=== PATIENT | female | born 1965 | race Two or more races ===

== ENCOUNTER 2021-01-25 07:50 | Emergency (ER) | payer MEDICAID, OTHER ==
[~2021-01-25] VITALS: Ht 160 cm; Wt 86.2 kg
[2021-01-25] MEDS ORDERED: cloNIDine HCL 0.1 MG TAB PO ONE (08:30)
[2021-01-25 08:58] LABS: Basophils # (auto) 0.1 10 ^3/uL (0-0.2); Basophils % (auto) 0.5 % (0.0-2.0); Eosinophils # (auto) 0 10 ^3/uL (0-0.8); Eosinophils % (auto) 0.2 % (0.0-7.0); Hematocrit 40.6 % (36.0-46.0); Hemoglobin 13.8 g/dL (12.2-16.2); Lymphocytes # (auto) 1.9 10 ^3/uL (0.4-5.4); Lymphocytes % (auto) 17.7 % (10.0-50.0); Mean Corpuscular Hemoglobin 31.3 pg (28.0-32.0); Mean Corpuscular Hgb Conc. 33.9 g/dL (32.0-36.0); Mean Corpuscular Volume 92.1 fL (80.0-100.0); Monocytes # (auto) 0.4 10 ^3/uL (0-1.3); Monocytes % (auto) 4.2 % (0.0-12.0); Neutrophils # (auto) 8.1 10 ^3/uL (1.6-8.6); Neutrophils % (auto) 77.4 % (37.0-80.0); Nucleated Red Blood Cells % 0.1 %; Platelet Count (auto) 411 10^3/uL (140-450); Red Blood Cells 4.41 10^6/uL (4.0-5.20); Red Cell Distribution Width 14.4 % (11.8-14.3); White Blood Cell 10.5 10^3/uL (4.4-10.8)
[2021-01-25] MEDS ORDERED: diphenhdrAMINE HCL 50 MG/1 ML VL IV ONE (09:00)
[2021-01-25] MEDS ORDERED: methylPREDNISolone SOD SUCC 125 MG/2 ML VL IV ONE (09:00)
[2021-01-25 09:13] LABS: Alanine Aminotransferase 33 U/L (13-56); Albumin 3.7 g/dL (3.4-5.0); Anion Gap 9 (5-15); Aspartate Aminotransferase 20 U/L (15-37); BUN/Creatinine Ratio 22.7; Blood Urea Nitrogen 17 mg/dL (7-18); Calcium 8.8 mg/dL (8.5-10.1); Carbon Dioxide 25 mmol/L (21-32); Chloride 105 mmol/L (98-107); GFR African American 103 mL/min; GFR Non-African American 85 mL/min; Glucose 159 mg/dL (74-106); Magnesium 1.9 mg/dL (1.6-2.6); Potassium 3.2 mmol/L (3.5-5.1); Sodium 139 mmol/L (136-145)
[2021-01-25 09:18] LABS: Alkaline Phosphatase 86 U/L (45-117); Bilirubin, Total 0.6 mg/dL (0.2-1.0); Total Protein 8.1 g/dL (6.4-8.2)
[2021-01-25 12:07] VITALS: BP 106/67
== END 2021-01-25 12:08 | disposition home or self-care (01) ==
LOC: ER 07:50
DX: I16.0 Hypertensive urgency (principal); T78.40XA Allergy, unspecified, initial encounter; Z88.0 Allergy status to penicillin; Z88.8 Allergy status to other drugs, medicaments and biological substances; Y92.89 Other specified places as the place of occurrence of the external cause
CPT/HCPCS: 36415; 71046; 80053; 83735; 84484; 85025; 93005; 96374; 96375; 99285; J1200; J2930

== ENCOUNTER 2021-01-29 10:27 | Emergency (ER) | payer MEDICAID ==
[~2021-01-29] VITALS: Ht 160 cm; Wt 86.2 kg
[2021-01-29 10:35] VITALS: BP 150/77
[2021-01-29 11:23] LABS: Basophils # (auto) 0.1 10 ^3/uL (0-0.2); Basophils % (auto) 0.6 % (0.0-2.0); Eosinophils # (auto) 0 10 ^3/uL (0-0.8); Hemoglobin 13.6 g/dL (12.2-16.2); Lymphocytes # (auto) 3.2 10 ^3/uL (0.4-5.4); Mean Corpuscular Hemoglobin 31.6 pg (28.0-32.0); Mean Corpuscular Hgb Conc. 34.1 g/dL (32.0-36.0); Mean Corpuscular Volume 92.6 fL (80.0-100.0); Monocytes # (auto) 0.6 10 ^3/uL (0-1.3); Neutrophils # (auto) 11.4 10 ^3/uL (1.6-8.6); Neutrophils % (auto) 74.4 % (37.0-80.0); Platelet Count (auto) 443 10^3/uL (140-450); Red Blood Cells 4.32 10^6/uL (4.0-5.20); Red Cell Distribution Width 14.4 % (11.8-14.3); White Blood Cell 15.3 10^3/uL (4.4-10.8)
[2021-01-29 11:38] LABS: Albumin 3.9 g/dL (3.4-5.0); Calcium 8.9 mg/dL (8.5-10.1); Potassium 3.9 mmol/L (3.5-5.1)
[2021-01-29 11:42] LABS: BUN/Creatinine Ratio 25.4; Bilirubin, Total 0.4 mg/dL (0.2-1.0); Total Protein 7.9 g/dL (6.4-8.2)
== END 2021-01-29 14:55 | disposition home or self-care (01) ==
LOC: ER 10:27
DX: I16.0 Hypertensive urgency (principal); I10 Essential (primary) hypertension; E11.9 Type 2 diabetes mellitus without complications; Z90.710 Acquired absence of both cervix and uterus; Z88.0 Allergy status to penicillin; Z88.8 Allergy status to other drugs, medicaments and biological substances
CPT/HCPCS: 36415; 80053; 84484; 85025; 93005

== ENCOUNTER 2023-05-13 17:28 | Inpatient (IN) | payer MEDICAID ==
[~2023-05-13] VITALS: Ht 157.5 cm; Wt 88.1 kg
[2023-05-13 17:58] LABS: Basophils # (auto) 0.1 10 ^3/uL (0-0.2); Basophils % (auto) 0.7 % (0.0-2.0); Eosinophils # (auto) 0.1 10 ^3/uL (0-0.8); Eosinophils % (auto) 1.2 % (0.0-7.0); Hematocrit 37.6 % (36.0-46.0); Hemoglobin 12.6 g/dL (12.2-16.2); Lymphocytes # (auto) 2.7 10 ^3/uL (0.4-5.4); Mean Corpuscular Hemoglobin 30.9 pg (28.0-32.0); Mean Corpuscular Hgb Conc. 33.5 g/dL (32.0-36.0); Mean Corpuscular Volume 92.1 fL (80.0-100.0); Monocytes # (auto) 0.6 10 ^3/uL (0-1.3); Monocytes % (auto) 5.3 % (0.0-12.0); Neutrophils # (auto) 7.3 10 ^3/uL (1.6-8.6); Neutrophils % (auto) 67.8 % (37.0-80.0); Nucleated Red Blood Cells % 0.1 %; Red Blood Cells 4.08 10^6/uL (4.0-5.20); Red Cell Distribution Width 14.7 % (11.8-14.3); White Blood Cell 10.8 10^3/uL (4.4-10.8)
[2023-05-13 18:14] LABS: INR 1.04 (0.9-1.15); Partial Thromboplastin Time 28.8 SEC (24.5-34.5); Prothrombin Time 10.9 sec (9.3-11.8)
[2023-05-13 18:18] LABS: Alanine Aminotransferase 23 U/L (7-40); Albumin 4.7 g/dL (3.2-4.8); Alkaline Phosphatase 201 U/L (46-116); Anion Gap 10 (5-15); Aspartate Aminotransferase 16 U/L (13-40); BUN/Creatinine Ratio 22.4 (10.0-20.0); Blood Urea Nitrogen 15 mg/dL (9-23); Carbon Dioxide 22 mmol/L (20-30); Chloride 105 mmol/L (98-107); Glucose 125 mg/dL (74-106); Magnesium 1.9 mg/dL (1.6-2.6); Potassium 4.1 mmol/L (3.5-5.1); Sodium 137 mmol/L (136-145)
[2023-05-13 18:19] LABS: Bilirubin, Total 0.3 mg/dL (0.2-1.0); Total Protein 7.7 g/dL (5.7-8.2)
[2023-05-13] MEDS ORDERED: NITROGLYCERIN 0.4 MG SL TAB SL ONE (19:15)
[2023-05-13] MEDS ORDERED: ASPirin 325 MG TAB PO ONE (19:15)
[2023-05-13] MEDS ORDERED: NITROGLYCERIN 0.4 MG SL TAB SL PRN (21:45)
[2023-05-13] MEDS ORDERED: ACETAMINOPHEN 325 MG TAB PO PRN (21:45)
[2023-05-13] MEDS ORDERED: ONDANSETRON HCL 4 MG/2 ML VIAL IV PRN (21:45)
[2023-05-13] MEDS ORDERED: TEMAZEPAM 15 MG CAP PO PRN (21:45)
[2023-05-13] MEDS ORDERED: MORPHINE SULFATE INJ 2 MG/ml SYRG IV PRN (21:45)
[2023-05-13] MEDS: ASCORBIC ACID 500 MG TAB PO SCH (23:44)
[2023-05-14] VITALS (7 sets, daily range): BP systolic 121–151; BP diastolic 67–91; PULSE 77–96; RESP 16–20; TEMP 97.6–98.4; O2SAT 94–98
[2023-05-14] MEDS ORDERED: HYDR-4072 PO (00:40)
[2023-05-14] MEDS ORDERED: AMLO1TAB21 PO (00:40)
[2023-05-14] MEDS ORDERED: LISI20TA56 PO (00:40)
[2023-05-14] MEDS ORDERED: TRAM50TA2 PO (00:40)
[2023-05-14] MEDS: HYDROcodone-ACET 5/325MG TAB PO PRN ×3 (01:11→22:00)
[2023-05-14 06:50] LABS: Basophils # (auto) 0.1 10 ^3/uL (0-0.2); Basophils % (auto) 0.6 % (0.0-2.0); Eosinophils # (auto) 0.1 10 ^3/uL (0-0.8); Hemoglobin 11.6 g/dL (12.2-16.2); Mean Corpuscular Volume 92.8 fL (80.0-100.0); Monocytes # (auto) 0.7 10 ^3/uL (0-1.3)
[2023-05-14 06:52] LABS: Eosinophils % (auto) 0.9 % (0.0-7.0); Hematocrit 34.6 % (36.0-46.0); Lymphocytes # (auto) 3.3 10 ^3/uL (0.4-5.4); Lymphocytes % (auto) 31.1 % (10.0-50.0); Mean Corpuscular Hemoglobin 31.2 pg (28.0-32.0); Mean Corpuscular Hgb Conc. 33.7 g/dL (32.0-36.0); Monocytes % (auto) 6.9 % (0.0-12.0); Neutrophils # (auto) 6.5 10 ^3/uL (1.6-8.6); Neutrophils % (auto) 60.5 % (37.0-80.0); Red Blood Cells 3.73 10^6/uL (4.0-5.20); Red Cell Distribution Width 14.4 % (11.8-14.3); White Blood Cell 10.7 10^3/uL (4.4-10.8)
[2023-05-14 07:09] LABS: Alanine Aminotransferase 17 U/L (7-40); Albumin 4.3 g/dL (3.2-4.8); Alkaline Phosphatase 151 U/L (46-116); Anion Gap 9 (5-15); Aspartate Aminotransferase 18 U/L (13-40); BUN/Creatinine Ratio 15.5 (10.0-20.0); Bilirubin, Total 0.5 mg/dL (0.2-1.0); Blood Urea Nitrogen 9 mg/dL (9-23); Calcium 9.3 mg/dL (8.5-10.1); Carbon Dioxide 22 mmol/L (20-30); Chloride 105 mmol/L (98-107); Glucose 131 mg/dL (74-106); Potassium 3.9 mmol/L (3.5-5.1); Sodium 136 mmol/L (136-145); Total Protein 7.1 g/dL (5.7-8.2)
[2023-05-14] MEDS ORDERED: ASPirin 325 MG TAB PO ONE (08:00)
[2023-05-14] MEDS ORDERED: IOHEXOL 350 MG/ML 100ML IJ ONE (08:40)
[2023-05-14] MEDS: MULTIPLE VITAMIN TAB PO SCH (11:44)
[2023-05-14] MEDS: ENOXAPARIN SOD 100 MG/1 ML SYRINGE SC SCH ×2 (11:44→22:03)
[2023-05-14] MEDS: ASCORBIC ACID 500 MG TAB PO SCH ×2 (11:44→21:52)
[2023-05-14] MEDS: ZINC SULFATE 220mg CAP or TAB PO SCH (11:44)
[2023-05-14] MEDS: MORPHINE SULFATE INJ 2 MG/ml SYRG IV PRN ×2 (11:45→17:00)
[2023-05-14] MEDS: DOCUSATE SOD 100 MG CAP PO PRN (22:00)
[2023-05-15] MEDS: MORPHINE SULFATE INJ 2 MG/ml SYRG IV PRN ×4 (00:22→23:27)
[2023-05-15] MEDS: HYDROcodone-ACET 5/325MG TAB PO PRN ×3 (00:26→15:30)
[2023-05-15 05:00] VITALS: BP 160/98; PULSE 87; RESP 20; TEMP 98.1; O2SAT 96
[2023-05-15] MEDS: LISINOPRIL 20 MG TAB PO SCH (05:22)
[2023-05-15 05:25] LABS: Alanine Aminotransferase 22 U/L (7-40); Albumin 4.5 g/dL (3.2-4.8); Alkaline Phosphatase 163 U/L (46-116); Anion Gap 10 (5-15); Aspartate Aminotransferase 16 U/L (13-40); Bilirubin, Total 0.5 mg/dL (0.2-1.0); Blood Urea Nitrogen 14 mg/dL (9-23); Calcium 9.8 mg/dL (8.5-10.1); Carbon Dioxide 24 mmol/L (20-30); Chloride 105 mmol/L (98-107); Cholesterol 223 mg/dL (< 200); Glucose 117 mg/dL (74-106); HDL Cholesterol 39 mg/dL (40-59); LDL Cholesterol 161 mg/dL (< 100); Potassium 3.9 mmol/L (3.5-5.1); Sodium 139 mmol/L (136-145); Total Protein 7.2 g/dL (5.7-8.2); Triglycerides 183 mg/dL (< 150)
[2023-05-15 08:00] VITALS: BP 115/68; PULSE 78; PULSE 79; RESP 16; TEMP 98.3; O2SAT 96
[2023-05-15] MEDS ORDERED: ADENOSINE 74 MG in GIVE UN-DILUTED 0 ML IV ONE (08:30)
[2023-05-15] MEDS: ENOXAPARIN SOD 100 MG/1 ML SYRINGE SC SCH ×2 (09:18→21:33)
[2023-05-15] MEDS: MULTIPLE VITAMIN TAB PO SCH (09:18)
[2023-05-15] MEDS: ASCORBIC ACID 500 MG TAB PO SCH ×2 (09:19→21:32)
[2023-05-15] MEDS: ZINC SULFATE 220mg CAP or TAB PO SCH (09:19)
[2023-05-15] MEDS: amLODIPine BESYLATE 5 MG TAB PO SCH (09:19)
[2023-05-15] MEDS: ASPirin 81 mg TAB PO SCH (09:19)
[2023-05-15] MEDS: PANTOPRAZOLE 40 MG TAB PO SCH (09:22)
[2023-05-15 12:00] VITALS: BP 98/62; PULSE 84; RESP 16; TEMP 98.2; O2SAT 96
[2023-05-15 16:00] VITALS: BP 133/86; PULSE 90; RESP 16; TEMP 98.8; O2SAT 98
[2023-05-15] MEDS: DOCUSATE SOD 100 MG CAP PO PRN (16:34)
[2023-05-15 20:00] VITALS: PULSE 80; RESP 18
[2023-05-15] MEDS: ATORVASTATIN 20 MG TAB PO SCH (21:33)
[2023-05-15 22:00] VITALS: BP 132/79; PULSE 87; RESP 18; TEMP 97.8; O2SAT 94
[2023-05-15] MEDS ORDERED: CYCLOBENZAPRINE HCL 10 MG TAB PO PRN (23:45)
[2023-05-16] VITALS (7 sets, daily range): BP systolic 113–126; BP diastolic 68–79; PULSE 68–86; RESP 16–20; TEMP 36.6; O2SAT 95–99
[2023-05-16] MEDS: HYDROcodone-ACET 5/325MG TAB PO PRN ×3 (06:03→21:23)
[2023-05-16] MEDS: LISINOPRIL 20 MG TAB PO SCH (06:04)
[2023-05-16] MEDS: ASPirin 81 mg TAB PO SCH (08:53)
[2023-05-16] MEDS: MULTIPLE VITAMIN TAB PO SCH (08:54)
[2023-05-16] MEDS: ZINC SULFATE 220mg CAP or TAB PO SCH (08:54)
[2023-05-16] MEDS: PANTOPRAZOLE 40 MG TAB PO SCH (08:54)
[2023-05-16] MEDS: ASCORBIC ACID 500 MG TAB PO SCH ×2 (08:54→21:10)
[2023-05-16] MEDS: amLODIPine BESYLATE 5 MG TAB PO SCH (08:59)
[2023-05-16] MEDS: ENOXAPARIN SOD 100 MG/1 ML SYRINGE SC SCH ×2 (09:01→21:10)
[2023-05-16] MEDS: MORPHINE SULFATE INJ 2 MG/ml SYRG IV PRN (10:40)
[2023-05-16] MEDS ORDERED: ASPI-325 PO (14:17)
[2023-05-16] MEDS ORDERED: CYCL-611 PO (14:17)
[2023-05-16] MEDS: ATORVASTATIN 20 MG TAB PO SCH (21:10)
[2023-05-17] MEDS: MORPHINE SULFATE INJ 2 MG/ml SYRG IV PRN ×2 (01:20→15:34)
[2023-05-17 05:28] VITALS: BP 96/57; PULSE 74; RESP 20; TEMP 98.6; O2SAT 99
[2023-05-17] MEDS: LISINOPRIL 20 MG TAB PO SCH (05:30)
[2023-05-17 08:00] VITALS: BP 149/84; PULSE 100; PULSE 108; RESP 20; TEMP 97.6; O2SAT 95
[2023-05-17 09:00] VITALS: BP 149/84; PULSE 108; RESP 20; TEMP 97.6; O2SAT 95
[2023-05-17] MEDS: HYDROcodone-ACET 5/325MG TAB PO PRN (11:01)
[2023-05-17] MEDS: ENOXAPARIN SOD 100 MG/1 ML SYRINGE SC SCH (11:01)
[2023-05-17] MEDS: DOCUSATE SOD 100 MG CAP PO PRN (11:01)
[2023-05-17] MEDS: MULTIPLE VITAMIN TAB PO SCH (11:02)
[2023-05-17] MEDS: PANTOPRAZOLE 40 MG TAB PO SCH (11:03)
[2023-05-17] MEDS: ASCORBIC ACID 500 MG TAB PO SCH (11:03)
[2023-05-17] MEDS: amLODIPine BESYLATE 5 MG TAB PO SCH (11:03)
[2023-05-17] MEDS: ASPirin 81 mg TAB PO SCH (11:04)
[2023-05-17] MEDS: ZINC SULFATE 220mg CAP or TAB PO SCH (11:04)
[2023-05-17 13:00] VITALS: BP 121/91; PULSE 90; RESP 20; TEMP 97.6; O2SAT 95
[2023-05-17 13:27] VITALS: BP 149/84; PULSE 108; RESP 20; TEMP 97.6; O2SAT 95
[2023-05-17 15:34] VITALS: BP 121/91; PULSE 90; RESP 20
== END 2023-05-17 16:22 | disposition home or self-care (01) | DRG 203 ==
LOC: ER 17:28 → TELE 21:36 → TELE-WESTW 23:53
PROVIDERS: ADMIT Internal Medicine; ATTEND Internal Medicine
DX: R07.89 Other chest pain (principal); I11.9 Hypertensive heart disease without heart failure; E11.9 Type 2 diabetes mellitus without complications; I10 Essential (primary) hypertension; E66.9 Obesity, unspecified; R79.89 Other specified abnormal findings of blood chemistry; M79.606 Pain in leg, unspecified; R06.00 Dyspnea, unspecified; E78.5 Hyperlipidemia, unspecified; Z88.0 Allergy status to penicillin; Z68.35 Body mass index [BMI] 35.0-35.9, adult; Z87.891 Personal history of nicotine dependence; Z79.82 Long term (current) use of aspirin; Z88.6 Allergy status to analgesic agent; Z90.710 Acquired absence of both cervix and uterus; Z71.3 Dietary counseling and surveillance
CPT/HCPCS: 36415; 71045; 71275; 78452; 80053; 80061; 83735; 83880; 84484; 85025; 85379; 85610; 85730; 87081; 93005; 93017; 93306; 93970; G0378; J0153

== ENCOUNTER 2024-02-24 09:03 | Emergency (ER) | payer MEDICAID ==
[~2024-02-24] VITALS: Ht 160 cm; Wt 91.7 kg
[~2024-02-24 09:03] MED LIST: AMLO1TAB21 PO; ASPI-325 PO; CYCL-611 PO; HYDR-4072 PO; LISI20TA56 PO; TRAM50TA2 PO
[2024-02-24] MEDS ORDERED: PRED20TA2 PO (13:34)
[2024-02-24] MEDS ORDERED: EPIN0.1I11 IJ (13:34)
[2024-02-24] MEDS: SODIUM CHLORIDE 0.9% 1,000 ML IV ONE (14:45)
[2024-02-24] MEDS: diphenhdrAMINE HCL 50 MG/1 ML VL IV ONE (14:47)
[2024-02-24] MEDS: DexAMETHasone SOD PHOS 10MG/1ML VIAL INJ IV ONE (14:47)
[2024-02-24] MEDS: FAMOTIDINE (10MG/ML) 2ML VL IV ONE (14:48)
[2024-02-24 15:26] VITALS: BP 122/71; PULSE 70; RESP 16; TEMP 97.9; O2SAT 99
== END 2024-02-24 20:16 | disposition home or self-care (01) ==
LOC: ER 09:03
DX: T78.40XA Allergy, unspecified, initial encounter (principal); L50.9 Urticaria, unspecified; E11.9 Type 2 diabetes mellitus without complications; I10 Essential (primary) hypertension; Z90.710 Acquired absence of both cervix and uterus; Z87.891 Personal history of nicotine dependence; Z90.89 Acquired absence of other organs; Z88.6 Allergy status to analgesic agent; Z88.2 Allergy status to sulfonamides; Z91.013 Allergy to seafood; X58.XXXA Exposure to other specified factors, initial encounter
CPT/HCPCS: 96361; 96374; 96375; 99284; J1100; J1200; J3490; J7030

== ENCOUNTER → 2024-03-22 | Outpatient (CLI) | payer MEDICAID ==
[~2024-03-22] MED LIST changes: +EPIN0.1I11 IJ; +PRED20TA2 PO
[2024-03-22 10:45] LABS: Basophils # (auto) 0.1 10 ^3/uL (0-0.2); Hemoglobin 14.1 g/dL (12.2-16.2); Monocytes # (auto) 0.4 10 ^3/uL (0-1.3)
[2024-03-22 10:52] LABS: Basophils % (auto) 0.7 % (0.0-2.0); Eosinophils # (auto) 0 10 ^3/uL (0-0.8); Eosinophils % (auto) 0.4 % (0.0-7.0); Hematocrit 41.4 % (36.0-46.0); Lymphocytes % (auto) 19.2 % (10.0-50.0); Mean Corpuscular Hemoglobin 32.4 pg (28.0-32.0); Mean Corpuscular Hgb Conc. 34.2 g/dL (32.0-36.0); Mean Corpuscular Volume 94.8 fL (80.0-100.0); Monocytes % (auto) 3.6 % (0.0-12.0); Neutrophils % (auto) 76.1 % (37.0-80.0); Red Blood Cells 4.37 10^6/uL (4.0-5.20); Red Cell Distribution Width 14.3 % (11.8-14.3); White Blood Cell 10.5 10^3/uL (4.4-10.8)
[2024-03-22 11:34] LABS: Alanine Aminotransferase 22 U/L (7-40); Albumin 4.9 g/dL (3.2-4.8); Alkaline Phosphatase 114 U/L (46-116); Anion Gap 7 (5-15); Aspartate Aminotransferase 18 U/L (13-40); BUN/Creatinine Ratio 11.9 (10.0-20.0); Bilirubin, Total 0.4 mg/dL (0.2-1.0); Blood Urea Nitrogen 10 mg/dL (9-23); Carbon Dioxide 25 mmol/L (20-30); Chloride 108 mmol/L (98-107); Glucose 165 mg/dL (74-106); Sodium 140 mmol/L (136-145); Total Protein 7.7 g/dL (5.7-8.2)
[2024-03-23 12:47] LABS: Mumps IgG Antibody <9.0 AU/mL (Immune >10.9); RPR Non Reactive (Non Reactive); Rubeola IgG Antibody >300.0 AU/mL (Immune >16.4); Varicella Zoster IgG Antibody 1787 index (Immune >165)
[2024-03-23 13:07] LABS: Chlamydia Trachomatis, NAA Negative (Negative); Neisseria gonorrhoeae, NAA Negative (Negative)
[2024-03-24 09:05] LABS: Hepatitis B Surface Antigen Negative (Negative)
[2024-03-24 09:27] LABS: Hepatitis B Core IgM Negative
[2024-03-24 11:51] LABS: Hepatitis A Ab IgM Negative; Hepatitis C Antibody Negative (Negative)
== END | disposition home or self-care (01) ==
LOC: LAB 09:49
PROVIDERS: ATTEND Internal Medicine
DX: Z11.3 Encounter for screening for infections with a predominantly sexual mode of transmission (principal); Z11.59 Encounter for screening for other viral diseases; E11.69 Type 2 diabetes mellitus with other specified complication; E11.22 Type 2 diabetes mellitus with diabetic chronic kidney disease; N18.2 Chronic kidney disease, stage 2 (mild); D72.829 Elevated white blood cell count, unspecified; E87.5 Hyperkalemia
CPT/HCPCS: 36415; 80053; 80074; 85025; 86592; 86703; 86735; 86762; 86765; 86787

== ENCOUNTER → 2024-06-01 | Outpatient (CLI) | payer MEDICAID ==
[2024-06-01 11:02] LABS: Alanine Aminotransferase 20 U/L (7-40); Alkaline Phosphatase 94 U/L (46-116); Anion Gap 5 (5-15); BUN/Creatinine Ratio 12.3 (10.0-20.0); Blood Urea Nitrogen 10 mg/dL (9-23); Calcium 9.9 mg/dL (8.7-10.4); Carbon Dioxide 26 mmol/L (20-31); Chloride 108 mmol/L (98-107); Glucose 123 mg/dL (74-106); LDL Cholesterol 179 mg/dL (< 100); Potassium 4.3 mmol/L (3.5-5.1); Sodium 139 mmol/L (136-145); Triglycerides 165 mg/dL (< 150)
[2024-06-01 11:03] LABS: Albumin 4.6 g/dL (3.2-4.8); Aspartate Aminotransferase 15 U/L (13-40); Bilirubin, Total 0.3 mg/dL (0.2-1.0); Cholesterol 235 mg/dL (< 200); HDL Cholesterol 43 mg/dL (40-59); Total Protein 7.6 g/dL (5.7-8.2)
[2024-06-01 11:07] LABS: Creatinine, Urine 322.95 mg/dL (30.0-125.0)
== END | disposition home or self-care (01) ==
LOC: LAB 09:50
PROVIDERS: ATTEND Internal Medicine
DX: I12.9 Hypertensive chronic kidney disease with stage 1 through stage 4 chronic kidney disease, or unspecified chronic kidney disease (principal); E11.22 Type 2 diabetes mellitus with diabetic chronic kidney disease; N18.2 Chronic kidney disease, stage 2 (mild); E11.69 Type 2 diabetes mellitus with other specified complication; E78.2 Mixed hyperlipidemia
CPT/HCPCS: 36415; 80053; 80061; 82043; 82570; 83036

== ENCOUNTER → 2024-10-19 | Outpatient (CLI) | payer MEDICAID ==
[2024-10-19 11:43] LABS: Basophils # (auto) 0.1 10 ^3/uL (0-0.2); Basophils % (auto) 0.6 % (0.0-2.0); Eosinophils # (auto) 0 10 ^3/uL (0-0.8); Eosinophils % (auto) 0.4 % (0.0-7.0); Hematocrit 40.4 % (36.0-46.0); Hemoglobin 13.7 g/dL (12.2-16.2); Lymphocytes # (auto) 2.7 10 ^3/uL (0.4-5.4); Lymphocytes % (auto) 29.7 % (10.0-50.0); Mean Corpuscular Hemoglobin 31.9 pg (28.0-32.0); Mean Corpuscular Hgb Conc. 33.8 g/dL (32.0-36.0); Mean Corpuscular Volume 94.3 fL (80.0-100.0); Monocytes # (auto) 0.3 10 ^3/uL (0-1.3); Monocytes % (auto) 3.8 % (0.0-12.0); Neutrophils % (auto) 65.5 % (37.0-80.0); Platelet Count (auto) 428 10^3/uL (140-450); Red Blood Cells 4.28 10^6/uL (4.0-5.20); Red Cell Distribution Width 14.7 % (11.8-14.3); White Blood Cell 9.1 10^3/uL (4.4-10.8)
[2024-10-19 12:28] LABS: Alanine Aminotransferase 14 U/L (7-40); Alkaline Phosphatase 91 U/L (46-116); Anion Gap 6 (5-15); BUN/Creatinine Ratio 19.2 (10.0-20.0); Bilirubin, Total 0.4 mg/dL (0.2-1.0); Blood Urea Nitrogen 14 mg/dL (9-23); Carbon Dioxide 29 mmol/L (20-31); Chloride 105 mmol/L (98-107); Glucose 95 mg/dL (74-106); Potassium 4.9 mmol/L (3.5-5.1); Sodium 140 mmol/L (136-145); Total Protein 7.6 g/dL (5.7-8.2)
[2024-10-19 12:36] LABS: Urine Bacteria FEW /hpf (None Seen); Urine Blood Negative /uL (Negative); Urine Clarity Turbid (Clear); Urine Color Yellow (Yellow); Urine Hyaline Cast FEW /lpf (0 - 2); Urine Mucus FEW (None Seen); Urine Protein, UAD Negative (Negative); Urine Specific Gravity 1.024 (1.001-1.035); Urine Squamous Epithelial Cell FEW /hpf (<5); Urine Urobilinogen Normal (Negative); Urine WBC 3 /HPF (0-5); Urine pH 5.5 (5.0-9.0)
[2024-10-19 12:41] LABS: Albumin 4.8 g/dL (3.2-4.8); Aspartate Aminotransferase 12 U/L (13-40); Calcium 10.5 mg/dL (8.7-10.4)
[2024-10-19 13:00] LABS: Triglycerides 138 mg/dL (< 150)
[2024-10-19 13:02] LABS: HDL Cholesterol 43 mg/dL (40-59)
[2024-10-19 13:09] LABS: Cholesterol 244 mg/dL (< 200); LDL Cholesterol 182 mg/dL (< 100)
== END | disposition home or self-care (01) ==
LOC: LAB 11:24
PROVIDERS: ATTEND Internal Medicine
DX: I12.9 Hypertensive chronic kidney disease with stage 1 through stage 4 chronic kidney disease, or unspecified chronic kidney disease (principal); E11.22 Type 2 diabetes mellitus with diabetic chronic kidney disease; N18.2 Chronic kidney disease, stage 2 (mild); E11.69 Type 2 diabetes mellitus with other specified complication; E78.2 Mixed hyperlipidemia; E87.5 Hyperkalemia; Z00.01 Encounter for general adult medical examination with abnormal findings
CPT/HCPCS: 36415; 80053; 80061; 81001; 82043; 83036; 84439; 84443; 85025

== ENCOUNTER → 2024-11-02 | Outpatient (CLI) | payer MEDICAID ==
[2024-11-02 10:44] LABS: Alanine Aminotransferase 20 U/L (7-40); Albumin 4.2 g/dL (3.2-4.8); Alkaline Phosphatase 90 U/L (46-116); Anion Gap 8 (5-15); Aspartate Aminotransferase 20 U/L (13-40); BUN/Creatinine Ratio 8.5 (10.0-20.0); Calcium 9.4 mg/dL (8.7-10.4); Carbon Dioxide 29 mmol/L (20-31); Chloride 105 mmol/L (98-107); Creatine Kinase IFCC 87 U/L (34-145); Glucose 94 mg/dL (74-106); Potassium 4.1 mmol/L (3.5-5.1); Sodium 142 mmol/L (136-145); Total Protein 7.1 g/dL (5.7-8.2)
[2024-11-02 10:45] LABS: Bilirubin, Total 0.4 mg/dL (0.2-1.0)
[2024-11-02 10:46] LABS: Blood Urea Nitrogen 5 mg/dL (9-23)
== END | disposition home or self-care (01) ==
LOC: LAB 09:05
PROVIDERS: ATTEND Internal Medicine
DX: I12.9 Hypertensive chronic kidney disease with stage 1 through stage 4 chronic kidney disease, or unspecified chronic kidney disease (principal); E11.22 Type 2 diabetes mellitus with diabetic chronic kidney disease; N18.2 Chronic kidney disease, stage 2 (mild); E11.69 Type 2 diabetes mellitus with other specified complication; E78.2 Mixed hyperlipidemia
CPT/HCPCS: 36415; 80053; 82550

== ENCOUNTER 2025-01-23 10:11 | Outpatient (CLI) | payer MEDICAID ==
[2025-01-23 11:00] LABS: Alanine Aminotransferase 19 U/L (7-40); Albumin 4.7 g/dL (3.2-4.8); Alkaline Phosphatase 91 U/L (46-116); Anion Gap 8 (5-15); Aspartate Aminotransferase 16 U/L (<34); BUN/Creatinine Ratio 18.1 (10.0-20.0); Blood Urea Nitrogen 13 mg/dL (9-23); Calcium 10.1 mg/dL (8.7-10.4); Carbon Dioxide 27 mmol/L (20-31); Chloride 107 mmol/L (98-107); Glucose 92 mg/dL (74-106); LDL Cholesterol 73 mg/dL (< 100); Sodium 142 mmol/L (136-145); Total Protein 7.3 g/dL (5.7-8.2); Triglycerides 96 mg/dL (< 150)
[2025-01-23 11:01] LABS: Bilirubin, Total 0.3 mg/dL (0.2-1.0); Cholesterol 136 mg/dL (< 200); HDL Cholesterol 49 mg/dL (40-59)
== END 2025-01-23 17:00 | disposition home or self-care (01) ==
LOC: LAB 10:11
PROVIDERS: ATTEND Internal Medicine
DX: E78.2 Mixed hyperlipidemia (principal); E11.69 Type 2 diabetes mellitus with other specified complication; E83.52 Hypercalcemia
CPT/HCPCS: 36415; 80053; 80061

== ENCOUNTER 2025-04-23 03:09 | Inpatient (IN) | payer MEDICAID ==
[~2025-04-23] VITALS: Ht 160 cm; Wt 79.5 kg
[2025-04-23] MEDS: ONDANSETRON HCL 4 MG/2 ML VIAL IV ONE (03:30)
--- NOTE | 2025-04-23 04:02 | ED.PDOC ---
History of Present Illness HPI Comments 59 y/o F presents with c/c nonradiating, epigastric abdominal pain, nausea, and vomiting. Patient endorses on sudden onset of symptoms after last eating an [id number], earlier, last night. No previous history of similar symptoms in the past alongside any endorsement of any pertinent medical, surgical, or family history. Denies any bloody or bilious vomitus, diarrhea, constipation, or further associated symptoms. Chief Complaint: Abdominal Pain Time Seen by MD: 03:30 Primary Care Provider: KASSI Allergies: Coded Allergies: Ibuprofen (Verified Allergy, Mild, 01/25/21) NSAIDs (Verified Allergy, Unknown, 02/24/24) Penicillins (Verified Allergy, Unknown, 01/25/21) Shellfish Allergy (Verified Allergy, Unknown, 02/24/24) Home Meds Active Scripts Epinephrine (Anaphylaxis) (Auvi-Q) 0.1 Mg/0.1 Ml Inj, 0.1 MG IJ O PRN for 1 Day, #1 INJ Prov:MEREDITH BORDEN MD 02/24/24 Prednisone (Prednisone) 20 Mg Tab, 40 MG PO DAILY for 5 Days, #10 MG Prov:MEREDITH BORDEN MD 02/24/24 Cyclobenzaprine HCl (Cyclobenzaprine Hydrochlo) 10 Mg Tab, 10 MG PO Q8HPRN PRN for 10 Days, #30 TAB Prov:SABINE ROBLEDO NP 05/16/23 Aspirin (Aspirin Low Dose) 81 Mg Tab, 81 MG PO DAILY for 30 Days, #30 TAB Prov:SABINE ROBLEDO NP 05/16/23 Reported Medications Tramadol Hcl (Tramadol Hcl) 50 Mg Tab, 1 TAB PO Q8HPRN PRN for PAIN SCALE 1 THRU 6 05/14/23 Hydrocodone-Acetaminophen (Hydrocodone/Acetaminophen 10-325 mg) 1 Tab Tab, 1 TAB PO Q6HPRN PRN for PAIN1-6 05/14/23 Amlodipine Besylate (Amlodipine Besylate) 2.5 Mg Tab, 2.5 MG PO DAILY, TAB 05/14/23 Lisinopril (Lisinopril) 20 Mg Tab, 20 MG PO QAM, TAB 05/14/23 Information Source: Patient Mode of Arrival: Ambulatory Past Medical History PAST MEDICAL HISTORY: DM, HTN Surgical History: , Hysterectomy, Tonsillectomy 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 Pertinent AUTOMATIC DRY STARCH OPERATOR History Family History Family History: Reviewed,noncontributory to illness Social History Smoker: Quit Greater Than 1 Year Alcohol: Denies ETOH Use Drugs: Denies Drug Use Lives In: Home All Other Systems: Reviewed and Negative (Comprehensive systems review obtained and negative except for what is stated in the HPI.) Physical Exam General Appearance: Moderate Distress, Obese HEENT: Normal ENT Inspection, Pharynx Normal, TMs Normal Neck: Full Range of Motion, Non-Tender, Normal, Normal Inspection Respiratory: Chest Non-Tender, Lungs Clear, No Accessory Muscle Use, No Respiratory Distress, Normal Breath Sounds Cardiovascular: No Edema, No JVD, No Murmur, No Gallop, Normal Peripheral Pulses, Regular Rate/Rhythm Breast Exam: Deferred Gastrointestinal: Epigastric (tenderness ), No Organomegaly, No Pulsatile Mass, Normal Bowel Sounds, RUQ (tenderness ), Soft, Tenderness (epigastric and RUQ regions ) Genitalia: Deferred Pelvic: Deferred Rectal: Deferred Extremities: No calf tenderness, Normal capillary refill, Normal inspection, Normal range of motion, Non-tender, No pedal edema Musculoskeletal : Apperance: Normal Neurologic: Alert, well logging captain II-XII nml as Tested, No Motor Deficits, Normal Affect, Normal Mood, No Sensory Deficits Cerebellar Function: Normal Reflexes: Normal Skin: Dry, Normal Color, Warm Peripheral Pulses: 3+ Radial (R), 3+ Radial (L) Lymphatic: No Adenopathy Was a procedure done? Was a procedure done?: No Differential Dx Considerations may include: gastritis, gastroenteritis, GERD, PUD, cholelithiasis, cholecystitis, among others X-Ray, Labs, Meds, VS Vital Signs Date Time Temp Pulse Resp B/P (MAP) Pulse Ox O2 Delivery O2 Flow Rate FiO2 04/23/25 03:13 97.9 97 22 160/85 97 97.9 Lab Test 04/23/25 04:00 Range/Units White Blood Count 15.2 H 4.4-10.8 10^3/uL Red Blood Count 4.00 4.0-5.20 10^6/uL Hemoglobin 12.9 12.2-16.2 g/dL Hematocrit 37.6 36.0-46.0 % Mean Corpuscular Volume 94.0 80.0-100.0 fL Mean Corpuscular Hemoglobin 32.4 H 28.0-32.0 pg Mean Corpuscular Hemoglobin Concent 34.4 32.0-36.0 g/dL Red Cell Distribution Width 14.5 H 11.8-14.3 % Platelet Count 424 140-450 10^3/uL Mean Platelet Volume 6.9 6.9-10.8 fL Neutrophils (%) (Auto) 90.0 H 37.0-80.0 % Lymphocytes (%) (Auto) 8.1 L 10.0-50.0 % Monocytes (%) (Auto) 1.8 0.0-12.0 % Eosinophils (%) (Auto) 0.0 0.0-7.0 % Basophils (%) (Auto) 0.1 0.0-2.0 % Neutrophils # (Auto) 13.7 H 1.6-8.6 10 ^3/uL Lymphocytes # (Auto) 1.2 0.4-5.4 10 ^3/uL Monocytes # (Auto) 0.3 0-1.3 10 ^3/uL Eosinophils # (Auto) 0 0-0.8 10 ^3/uL Basophils # (Auto) 0 0-0.2 10 ^3/uL Nucleated Red Blood Cells 0.0 % Sodium Level 139 136-145 mmol/L Potassium Level 3.9 3.5-5.1 mmol/L Chloride Level 105 98-107 mmol/L Carbon Dioxide Level 26 20-31 mmol/L Anion Gap 8 5-15 Blood Urea Nitrogen 14 9-23 mg/dL Creatinine 0.76 0.550-1.02 mg/dL Glomerular Filtration Rate Calc 90 >90 mL/min BUN/Creatinine Ratio 18.4 10.0-20.0 Serum Glucose 154 H 74-106 mg/dL Calcium Level 9.5 8.7-10.4 mg/dL Total Bilirubin 0.5 0.2-1.0 mg/dL Aspartate Amino Transferase (AST) 50 H 13-40 U/L Alanine Aminotransferase (ALT) 47 H 7-40 U/L Alkaline Phosphatase 99 46-116 U/L Total Protein 7.7 5.7-8.2 g/dL Albumin 4.7 3.2-4.8 g/dL Lipase 34 12-53 U/L Current Medications Medications (Trade) Dose Ordered Sig/[place] Route Start Time Stop Time Status Last Admin Ondansetron HCl (Zofran) 4 mg ONCE ONCE IV 04/23/25 03:30 04/23/25 03:32 DC 04/23/25 03:30 Sodium Chloride 1,000 ml @ 1,000 mls/hr Q1H ONCE IV 04/23/25 03:30 04/23/25 04:29 DC 04/23/25 05:30 Patient alert. Came in because of abdominal pain. Vitals stable. Answering questions. WBC elevated. Liver profile elevated. Blood sugar elevated. Establish intravenous access. Was given fluids. Was given Levaquin. Was given Flagyl. Ultrasound reviewed does not show any acute changes. Explained to the patient. Continue monitoring. Time of 1ST Reevaluation: 04:00 Reevaluation 1ST: Unchanged Patient Education/Counseling: Diagnosis, Treatment, Need For Follow Up Family Education/Counseling: No Family Present Comments Patient is still waiting for the gallbladder ultrasound. I will signed out to Additional Information Previous visits: N/A The following tests were ordered, and results were reviewed by me: US gallbladder, UA, Lipase, CMP, CBC Additional Information was gathered from interviewing the following independent historians: N/A I reviewed and agreed with the following test results read by other providers: US gallbladder I discussed treatment and results with medical personnel and: patient SEPSIS Sepsis Screen Date sepsis recognized/suspect: Apr 23, 2025 Time Sepsis recognized/suspect: 316 Recent Procedure: No On Antibiotic Therapy: No Respiratory Rate >20: No Heart Rate >90: No Temp<36 C (96.8 F) or >38.3 C: No SBP <90 or MAP <65 mmHG: No New Acute Mental Status Change: No Is the patient on CPAP, BIPAP,: No Physician Orders Urinalysis (04/23/25 03:30) Gallbladder (04/23/25 03:30) Ct Ab Pel Wo Con-No Oral Or Iv (04/23/25 07:55) Blood Culture (04/23/25 07:55) Lactic Acid W/ Reflex Order (04/23/25 07:55) Levofloxacin Levaquin (04/23/25 08:00) Metronidazole Ivpb Flagyl (04/23/25 08:00) Vital Signs Date Time Temp Pulse Resp B/P (MAP) Pulse Ox O2 Delivery O2 Flow Rate FiO2 04/23/25 03:13 97.9 97 22 160/85 97 97.9 Laboratory Tests Test 04/23/25 04:00 White Blood Count 15.2 10^3/uL (4.4-10.8) H Medications Medications Dose Ordered Sig/[place] Route Start Time Stop Time Status Last Admin Dose Admin Ondansetron HCl 4 mg ONCE ONCE IV 04/23/25 03:30 04/23/25 03:32 DC 04/23/25 03:30 Sodium Chloride 1,000 ml @ 1,000 mls/hr Q1H ONCE IV 04/23/25 03:30 04/23/25 04:29 DC 04/23/25 05:30 Departure 1 Departure Time of Disposition: 07:58 Impression: Primary Impression: Acute abdominal pain Additional Impressions: Sepsis, unspecified organism Qualified Codes: A41.9 - Sepsis, unspecified organism Uncontrolled diabetes mellitus Qualified Codes: E13.65 - Other specified diabetes mellitus with hyperglycemia Disposition: ADMITTED INPATIENT Admit to: Med Surg Condition: Guarded Critical Care Note Critical Care Time?: Yes (90 min-critical care time only) Stability Stability form required: No Heart Score Heart Score: Heart Score Response (Comments) Value History N/A 0 EKG N/A 0 Age N/A 0 Risk Factors N/A 0 Troponin N/A 0 Total 0 I personally scribed for VLAD SIMMONS MD ([email or web address]) on 04/23/25 at 04:02. Electronically submitted by Alejo Zavaleta ([email or web address]). VLAD SIMMONS MD Apr 23, 2025 04:02 ESSENCE CASILLAS MD Apr 23, 2025 07:59
[2025-04-23 04:13] LABS: Hematocrit 37.6 % (36.0-46.0); Hemoglobin 12.9 g/dL (12.2-16.2); Mean Corpuscular Hemoglobin 32.4 pg (28.0-32.0); Mean Corpuscular Volume 94.0 fL (80.0-100.0); Nucleated Red Blood Cells % 0.0 %
[2025-04-23 04:37] LABS: Albumin 4.7 g/dL (3.2-4.8); Alkaline Phosphatase 99 U/L (46-116); Anion Gap 8 (5-15); BUN/Creatinine Ratio 18.4 (10.0-20.0); Bilirubin, Total 0.5 mg/dL (0.2-1.0); Blood Urea Nitrogen 14 mg/dL (9-23); Calcium 9.5 mg/dL (8.7-10.4); Carbon Dioxide 26 mmol/L (20-31); Chloride 105 mmol/L (98-107); Lipase 34 U/L (12-53); Potassium 3.9 mmol/L (3.5-5.1); Sodium 139 mmol/L (136-145); Total Protein 7.7 g/dL (5.7-8.2)
[2025-04-23 04:51] LABS: Alanine Aminotransferase 47 U/L (7-40); Glucose 154 mg/dL (74-106)
[2025-04-23] MEDS: SODIUM CHLORIDE 0.9% 1,000 ML IV ONE (05:30)
--- NOTE | 2025-04-23 07:46 | DVH ---
INDICATION: ruq pain TECHNIQUE: Multiple real-time sonographic images were obtained of the right upper quadrant. COMPARISON: None FINDINGS: The liver demonstrates homogeneous echotexture without focal mass lesions. The liver measu res 17.8 cm. There is no intrahepatic or extrahepatic ductal dilatation. The common duct measures 0.6 cm. The gallbladder is without evidence of stone or sludge. The gallbladder wall measures 0.2 cm and is w ithin normal limits. The right kidney measures 10 cm. The right kidney is normal in contour, size, and shape. The echogeni city is normal. There is no hydronephrosis. The pancreas is not well visualized due to overlying bowel gas. IMPRESSION: No sonographic evidence of gallstones or acute cholecystitis. Hepatomegaly.
--- NOTE | 2025-04-23 08:47 | DVH ---
Exam: CT CT AB PEL WO CON-NO ORAL OR IV History: colitis Comparison Study: None Technique: Multidetector spiral CT of the abdomen was performed from lung bases to pubic symphysis. I maging was performed without IV contrast. Axial, coronal and sagittal multiplanar reformats were obta ined from the axial data set by the technologist. Radiation Dose : 1. Abdomen/Pelvis: CTDIvol 14.55 mGy, DLP 738.25 mGy*cm. Findings: Evaluation of solid organs is limited due to lack of intravenous contrast use. Lung Bases: No acute or significant lung base finding. Normal heart size. No pleural or pericardial effusion. Liver: Liver is enlarged measuring 17.8 cm, craniocaudal. Gallbladder and Biliary Tree: Unremarkable Spleen: Unremarkable Pancreas: The pancreas is grossly normal in appearance. Adrenal Glands: Unremarkable Kidneys: Kidneys are grossly normal without calculi or hydronephrosis. Bladder: Grossly unremarkable for degree of distention. Bowel: The stomach is grossly normal in appearance. Moderate diffuse colonic bowel wall thickening. Diverticulosis. The appendix is not visualized; however, no secondary findings of acute appendicitis identified. Ascites: Absent Lymphadenopathy: No mesenteric, retroperitoneal or periportal lymphadenopathy. Abdominal Wall and Mesentery: Unremarkable. Vasculature: The visualized abdominal aorta is normal in size and caliber. Evaluation of abdominal a nd pelvic vessels is limited due to lack of intravenous contrast. Pelvic Organs: Unremarkable Musculoskeletal: No aggressive focal bony lesions, acute fractures or dislocation. Degenerative shah es of the spine. Lumbosacral spinal fixation hardware. IMPRESSION: Moderate diffuse colonic bowel wall thickening compatible with colitis. Radiation optimization: All CT scans at this facility use at least one of these dose optimization david hniques: automated exposure control mA and/or kV adjustment per patient size (includes targeted exam s where dose is matched to clinical indication) or iterative reconstruction.
[2025-04-23 09:11] VITALS: PULSE 79; RESP 17; O2SAT 100
[2025-04-23] MEDS ORDERED: DEXTROSE (50%) 50ML SYRG IV PRN (09:15)
[2025-04-23] MEDS ORDERED: HYDROcodone-ACET 5/325MG TAB PO PRN (09:15)
[2025-04-23] MEDS ORDERED: ACETAMINOPHEN 500 MG TAB or CAP PO PRN (09:15)
--- NOTE | 2025-04-23 09:26 | DVHHP2 ---
History of Present Illness Reason for Visit: Abdominal pain History of Present Illness Patient has a 59-year-old female presenting to the emergency room with reports of diffuse abdominal pain with localized pain described as sharp in nature in her epigastric area, profuse nausea and vomiting, as well as chills. Onset of symptoms began yesterday afternoon. Patient continues to have abdominal pain at this time. White blood cell count was found to be elevated at 15.2. CT scan positive for acute colitis. Patient will be admitted for continued IV antibiotic therapy as well as IV hydration. Significant history of the patient includes diabetes mellitus, and hypertension. Cardiovascular: HTN Endocrine: Diabetes Past Surgical History: Family History: None Smoke: No ALCOHOL: none Drugs: None Review of Systems Constitutional: Yes: Malaise Eyes: No: Pain, Vision change, Conjunctivae inflammation, Eyelid inflammation, Other, Redness ENT: No: Ear pain, Ear discharge, Nose pain, Nose discharge, Nose congestion, Mouth pain, Mouth swelling, Throat pain, Throat swelling, Other Respiratory: No: Cough, Dry, Shortness of breath, SOB with excertion, Wheezing, Hemoptysis, Pleuritic Pain, Sputum, Wheezing, Other Cardiovascular: No: Chest Pain, Palpitations, Orthopnea, Paroxysmal Noc. Dyspnea, Edema, Lt Headedness, Other Gastrointestinal: Nausea, Vomiting, Abdominal Pain Genitourinary: No Dysuria, No Frequency, No Incontinence, No Hematuria, No Retention, No Other Musculoskeletal: No: other, neck pain, shoulder pain, arm pain, back pain, hand pain, leg pain, foot pain Skin: No: Rash, Lesions, Jaundice, Bruising, Other Neurological: No: Weakness, Numbness, Incoordination, Change in speech, Conf usion, Seizures, Other Allergies: Coded Allergies: Ibuprofen (Verified Allergy, Mild, 01/25/21) NSAIDs (Verified Allergy, Unknown, 02/24/24) Penicillins (Verified Allergy, Unknown, 01/25/21) Shellfish Allergy (Verified Allergy, Unknown, 02/24/24) Exam Vital Signs Vital Signs Date Time Temp Pulse Resp B/P (MAP) Pulse Ox O2 Delivery O2 Flow Rate FiO2 04/23/25 03:13 97.9 97 22 160/85 97 97.9 General Appearance: Alert, Oriented X3, Cooperative, moderate distress HEENT: Atraumatic, PERRLA Respiratory: Clear to auscultation, Normal air movement Cardiovascular: Normal S1, Normal S2 Abdominal: Normal bowel sounds, Other (Epigastric pain with light palpation) Neuro: Normal gait, Normal speech Psych/Mental Status: Mental status NL, Mood NL Labs/Xrays Labs Test 04/23/25 08:32 04/23/25 04:00 Range/Units Lactic Acid Level 1.5 0.4-2.0 mmol/L White Blood Count 15.2 H 4.4-10.8 10^3/uL Red Blood Count 4.00 4.0-5.20 10^6/uL Hemoglobin 12.9 12.2-16.2 g/dL Hematocrit 37.6 36.0-46.0 % Mean Corpuscular Volume 94.0 80.0-100.0 fL Mean Corpuscular Hemoglobin 32.4 H 28.0-32.0 pg Mean Corpuscular Hemoglobin Concent 34.4 32.0-36.0 g/dL Red Cell Distribution Width 14.5 H 11.8-14.3 % Platelet Count 424 140-450 10^3/uL Mean Platelet Volume 6.9 6.9-10.8 fL Neutrophils (%) (Auto) 90.0 H 37.0-80.0 % Lymphocytes (%) (Auto) 8.1 L 10.0-50.0 % Monocytes (%) (Auto) 1.8 0.0-12.0 % Eosinophils (%) (Auto) 0.0 0.0-7.0 % Basophils (%) (Auto) 0.1 0.0-2.0 % Neutrophils # (Auto) 13.7 H 1.6-8.6 10 ^3/uL Lymphocytes # (Auto) 1.2 0.4-5.4 10 ^3/uL Monocytes # (Auto) 0.3 0-1.3 10 ^3/uL Eosinophils # (Auto) 0 0-0.8 10 ^3/uL Basophils # (Auto) 0 0-0.2 10 ^3/uL Nucleated Red Blood Cells 0.0 % Sodium Level 139 136-145 mmol/L Potassium Level 3.9 3.5-5.1 mmol/L Chloride Level 105 98-107 mmol/L Carbon Dioxide Level 26 20-31 mmol/L Anion Gap 8 5-15 Blood Urea Nitrogen 14 9-23 mg/dL Creatinine 0.76 0.550-1.02 mg/dL Glomerular Filtration Rate Calc 90 >90 mL/min BUN/Creatinine Ratio 18.4 10.0-20.0 Serum Glucose 154 H 74-106 mg/dL Calcium Level 9.5 8.7-10.4 mg/dL Total Bilirubin 0.5 0.2-1.0 mg/dL Aspartate Amino Transferase (AST) 50 H 13-40 U/L Alanine Aminotransferase (ALT) 47 H 7-40 U/L Alkaline Phosphatase 99 46-116 U/L Total Protein 7.7 5.7-8.2 g/dL Albumin 4.7 3.2-4.8 g/dL Lipase 34 12-53 U/L SEPSIS Sepsis Screen Date sepsis recognized/suspect: Apr 23, 2025 Time Sepsis recognized/suspect: 316 Recent Procedure: No On Antibiotic Therapy: No Respiratory Rate >20: No Heart Rate >90: No Temp<36 C (96.8 F) or >38.3 C: No SBP <90 or MAP <65 mmHG: No New Acute Mental Status Change: No Is the patient on CPAP, BIPAP,: No Physician Orders Urinalysis (04/23/25 03:30) Gallbladder (04/23/25 03:30) Ct Ab Pel Wo Con-No Oral Or Iv (04/23/25 07:55) Blood Culture (04/23/25 07:55) Admit (04/23/25 09:09) Oxygen By Nasal Cannula (04/23/25 09:09) Levofloxacin Levaquin (04/24/25 10:00) Metronidazole Ivpb Flagyl (04/23/25 14:00) NS (04/23/25 09:15) Glucose Blood (Accu-Chek Comfort Curve T (04/23/25 11:30) Mild Sliding Scale (04/23/25 11:30) Dextrose 50% Syringe (04/23/25 09:15) Morphine Sulfate Injection (04/23/25 09:15) Hydrocodone-Acet 5/325mg Tab ([place] 5/32 (04/23/25 09:15) Acetaminophen Tab Or Cap (Tylenol Tablet (04/23/25 09:15) Ondansetron Hcl (Zofran) (04/23/25 09:15) Hemoglobin A1c (04/23/25 09:09) Clear Liq Diet (04/23/25 Breakfast) Basic Metabolic Panel (04/24/25 04:00) Complete Blood Count (04/24/25 04:00) Vital Signs Date Time Temp Pulse Resp B/P (MAP) Pulse Ox O2 Delivery O2 Flow Rate FiO2 04/23/25 03:13 97.9 97 22 160/85 97 97.9 Laboratory Tests Test 04/23/25 04:00 04/23/25 08:32 White Blood Count 15.2 10^3/uL (4.4-10.8) H Lactic Acid Level 1.5 mmol/L (0.4-2.0) Medications Medications Dose Ordered Sig/[place] Route Start Time Stop Time Status Last Admin Dose Admin Ondansetron HCl 4 mg ONCE ONCE IV 04/23/25 03:30 04/23/25 03:32 DC 04/23/25 03:30 4 MG Sodium Chloride 1,000 ml @ 1,000 mls/hr Q1H ONCE IV 04/23/25 03:30 04/23/25 04:29 DC 04/23/25 05:30 1,000 MLS/HR Assessment/Plan Assessment/Plan Impression: -sepsis -acute colitis -diabetes mellitus -primary hypertension -obesity Plan: -admit to Medical/Surgical unit -IV antibiotic therapy with Levaquin and Flagyl -clear liquid diet -regular insulin sliding scale -pain management -repeat labs in a.m. Total time spent with patient discussing and formulating plan of care: 35 minutes. This medical document was created using an electronic medical record system with [employer] dictation system. Although this document has been carefully reviewed, there may still be some phonetic and typographical errors. These areas are purely typographical due to imperfections of the software programs, and do not reflect any compromise in the patient's medical care. Plan discussed with: Patient, Other (RN) My Orders Orders - SANTIAGO DACOSTA [employer]URNED [employer] INSPECTOR Procedure Category Date Status Time Admit ADMIT 04/23/25 Transmitted 09:09 Oxygen By Nasal RT 04/23/25 Transmitted Cannula 09:09 Levofloxacin Levaquin PHA 04/24/25 Transmitted 10:00 Metronidazole Ivpb PHA 04/23/25 Transmitted Flagyl 14:00 NS PHA 04/23/25 Transmitted 09:15 Glucose Blood PHA 04/23/25 Transmitted (Accu-Chek Comfort 11:30 Mild Sliding Scale PHA 04/23/25 Transmitted 11:30 Dextrose 50% Syringe PHA 04/23/25 Transmitted 09:15 Morphine Sulfate PHA 04/23/25 Transmitted Injection 09:15 Hydrocodone-Acet PHA 04/23/25 Transmitted 5/325mg Tab ([place] 09:15 Acetaminophen Tab Or PHA 04/23/25 Transmitted Cap (Tylenol Tablet 09:15 Ondansetron Hcl PHA 04/23/25 Transmitted (Zofran) 09:15 Hemoglobin A1c LAB 04/23/25 Transmitted 09:09 Clear Liq Diet DIET 04/23/25 Transmitted Breakfast Basic Metabolic Panel LAB 04/24/25 Verified 04:00 Complete Blood Count LAB 04/24/25 Verified 04:00 Date of Service: Apr 23, 2025 Billing Provider: SANTIAGO DACOSTA NP Common Visit Codes: [id number] INP/OBS CARE (HIGH) SANTIAGO DACOSTA NP Apr 23, 2025 09:26
[2025-04-23] MEDS: SODIUM CHLORIDE 0.9% 1,000 ML IV SCH (09:43)
[2025-04-23] MEDS: ONDANSETRON HCL 4 MG/2 ML VIAL IV PRN (09:48)
[2025-04-23] MEDS: fentaNYL CITRATE 100 MCG/2 ML VL IV ONE (09:49)
[2025-04-23 10:05] LABS: Urine Amorphous Crystal FEW /hpf (None Seen); Urine Protein, UAD TRACE (Negative)
[2025-04-23] MEDS: PANTOPRAZOLE 40 MG/10 ML VIAL INJ IV SCH (11:09)
[2025-04-23] MEDS: InsuLIN REG 1unit/0.01ml Soln (100units/ml) SC SCH (11:30)
[2025-04-23] MEDS: ACCU-CHEK COMFORT CURVE STRIP VI SCH (11:51)
[2025-04-23 12:05] VITALS: BP 128/76; PULSE 100; RESP 17; TEMP 98; O2SAT 98
[2025-04-23 12:12] VITALS: BP 128/76; PULSE 100; RESP 17; RESP 18; TEMP 98; O2SAT 98
[2025-04-23] MEDS: MORPHINE SULFATE INJ 2 MG/ml SYRG ONE (15:53)
[2025-04-23] MEDS: MORPHINE SULFATE INJ 2 MG/ml SYRG IV PRN (16:04)
[2025-04-23 17:07] VITALS: BP 124/79; PULSE 86; RESP 18; TEMP 97.5; O2SAT 97
[2025-04-23] MEDS: ONDANSETRON HCL 4 MG/2 ML VIAL ONE (18:57)
[2025-04-23 20:00] VITALS: PULSE 77; RESP 18; O2SAT 98
[2025-04-23 21:00] VITALS: BP 115/71; PULSE 77; RESP 18; TEMP 98.1; O2SAT 98
[2025-04-24] VITALS (8 sets, daily range): BP systolic 118–135; BP diastolic 77–84; PULSE 68–73; RESP 17–20; TEMP 97.6–98.3; O2SAT 97–99
[2025-04-24 08:12] LABS: Hematocrit 37.3 % (36.0-46.0); Hemoglobin 12.5 g/dL (12.2-16.2); Mean Corpuscular Hemoglobin 32.4 pg (28.0-32.0); Mean Corpuscular Volume 96.5 fL (80.0-100.0); Nucleated Red Blood Cells % 0.0 %
[2025-04-24 08:26] LABS: Potassium 3.7 mmol/L (3.5-5.1); Sodium 143 mmol/L (136-145)
[2025-04-24 08:27] LABS: Anion Gap 10 (5-15); Calcium 8.9 mg/dL (8.7-10.4); Carbon Dioxide 24 mmol/L (20-31)
[2025-04-24 08:29] LABS: Chloride 109 mmol/L (98-107)
[2025-04-24 08:32] LABS: BUN/Creatinine Ratio 10.0 (10.0-20.0); Glucose 82 mg/dL (74-106)
[2025-04-24 08:33] LABS: Blood Urea Nitrogen 7 mg/dL (9-23)
[2025-04-24] MEDS: ONDANSETRON HCL 4 MG/2 ML VIAL ONE (11:42)
[2025-04-24] MEDS: PANTOPRAZOLE 40 MG/10 ML VIAL INJ IV ONE (11:43)
--- NOTE | 2025-04-24 16:41 | DVHPN2 ---
Subjective I am assuming the care of the patient from today onwards. This is a 59-year-old female with a known history of diabetes mellitus type 2 hypertension initially presented to the hospital with a epigastric pain associated with the nausea and vomiting found to have colitis. Patient denies any diarrhea. Changes from previous H/P or p: No Changes Eyes: No Pain, No Vision change, No Conjunctivae inflammation, No Eyelid inflammation, No Other, No Redness ENT: No Ear pain, No Ear discharge, No Nose pain, No Nose discharge, No Nose congestion, No Mouth pain, No Mouth swelling, No Throat pain, No Throat swelling, No Other Cardiovascular: No Chest Pain, No Palpitations, No Orthopnea, No Paroxysmal Noc. Dyspnea, No Edema, No Lt Headedness, No Other Respiratory: No Cough, No Dry, No Shortness of breath, No SOB with excertion, No Wheezing, No Hemoptysis, No Pleuritic Pain, No Sputum, No Other Gastrointestinal: Nausea, Vomiting, Abdominal Pain Genitourinary: No Dysuria, No Frequency, No Incontinence, No Hematuria, No Retention, No Other Musculoskeletal: No other, No neck pain, No shoulder pain, No arm pain, No back pain, No hand pain, No leg pain, No foot pain Skin: No Rash, No Lesions, No Jaundice, No Bruising, No Other Objective Vitals Vital Signs Date Time Temp Pulse Resp B/P (MAP) Pulse Ox O2 Delivery O2 Flow Rate FiO2 04/24/25 12:39 98.3 73 20 121/84 (96) 99 98.3 04/24/25 08:12 Room Air* 0 21 Intake/Output Intake and Output 04/24/25 07:00 Intake Total 1345 ml Balance 1345 ml Intake Oral 720 ml IV Total 625 ml # Voids 2 Exam HEENT pupils are reactive Neck is supple CV is S1-S2 regular rate and rhythm Respiratory are clear GI positive bowel sounds soft nondistended nontender there was no guarding no rigidity Extremities no edema 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 motor deficit Medications Current Medications Medications Dose Ordered Sig/[place] Route Start Time Stop Time Status Last Admin Dose Admin Levofloxacin/ Dextrose 100 ml @ 100 mls/hr DAILY IV 04/24/25 10:00 04/24/25 08:45 100 MLS/HR Metronidazole 100 ml @ 100 mls/hr Q8HR IV 04/23/25 14:00 04/24/25 13:20 100 MLS/HR Sodium Chloride 1,000 ml @ 75 mls/hr [id number] IV 04/23/25 09:15 04/24/25 11:55 75 MLS/HR Diagnostic Test (Pha) 1 strip ACHS 04/23/25 11:30 04/24/25 11:44 1 STRIP Insulin Human Regular ACHS SC 04/23/25 11:30 Dextrose 50 ml UD PRN IV 04/23/25 09:15 Morphine Sulfate 1 mg Q4HPRN PRN IV 04/23/25 09:15 04/23/25 16:04 1 MG Acetaminophen/ Hydrocodone Bitart 1 tab Q6HPRN PRN PO 04/23/25 09:15 Acetaminophen 500 mg Q8HP PRN PO 04/23/25 09:15 Ondansetron HCl 4 mg Q6HP PRN IV 04/23/25 09:15 04/24/25 11:01 4 MG Pantoprazole Sodium 40 mg DAILY IV 04/23/25 10:00 04/24/25 08:45 40 MG Laboratory Results Laboratory Tests 04/24/25 07:35 Chemistry Test 04/24/25 07:35 Calcium Level 8.9 mg/dL (8.7-10.4) Urinalysis Test 04/23/25 09:07 Urine Color Yellow (Yellow) Urine Clarity Turbid (Clear) H Urine pH 8.0 (5.0-9.0) Urine Specific [place] 1.022 (1.001-1.035) Urine Protein Trace (Negative) H Urine Ketones 1+ (Negative) H Urine Blood Negative /uL (Negative) Urine Nitrite Negative (Negative) Urine Bilirubin Negative (Negative) Urine Urobilinogen Normal mg/dL (Negative) Urine Leukocyte Esterase Negative /uL (Negative) Urine RBC 9 /hpf (0 - 4) Urine Microscopic WBC 4 /HPF (0-5) Urine Squamous Epithelial Cells Few /hpf (<5) Urine Amorphous Crystals Few /hpf (None Seen) Urine Bacteria None seen /hpf (None Seen) Urine Mucus Few (None Seen) Urine Glucose Normal mg/dL (Normal) Microbiology Microbiology Date/Time Source Procedure Growth Status 04/23/25 08:32 Blood Blood Culture - Preliminary NO GROWTH AFTER 24 HOURS OF INCUBATION. Resulted Assessment/Plan Assessment/Plan 59-year-old female with a known history of diabetes mellitus type 2, hypertension initially presented to the hospital with the abdominal pain in the epigastric region associated with the nausea and vomiting found to have 1. Colitis 2. Sepsis secondary to colitis 3. Leukocytosis likely reactive 4. Diabetes mellitus type 2 5. Hypertension -IV antibiotics, diet as tolerated. Outpatient follow up with the GI for colonoscopy once colitis resolved. Plan discussed with: Patient My Orders Orders - HARRISON HANSON MD Procedure Category Date Status Time Full Liq Diet DIET 04/24/25 Transmitted Dinner Date of Service: Apr 24, 2025 Billing Provider: HARRISON HANSON MD Common Visit Codes: [id number] INP/OBS CARE(MOD) HARRISON HANSON MD Apr 24, 2025 16:41
[2025-04-24] MEDS: fentaNYL CITRATE 100 MCG/2 ML VL ONE (16:52)
[2025-04-25] VITALS (7 sets, daily range): BP systolic 114–153; BP diastolic 63–93; PULSE 65–74; RESP 17–19; TEMP 97.4–98.1; O2SAT 97–99
--- NOTE | 2025-04-25 05:45 | DVH ---
Exam: XY KUB ABDOMEN SINGLE VIEW Indication: rule out obstruction Comparison: None Technique: Single radiographic view of the abdomen. Findings: Nonobstructive bowel gas pattern noted. There is no definite evidence for pneumoperitoneum. No abnormal calcifications noted. Hardware within the lower lumbar spine. Impression: 1. Nonobstructive bowel gas pattern.
[2025-04-25] MEDS: LISINOPRIL 20 MG TAB PO ONE (15:19)
[2025-04-25] MEDS ORDERED: METR-344 PO (15:30)
[2025-04-25] MEDS ORDERED: LEVO500T91 PO (15:30)
--- NOTE | 2025-04-25 15:31 | DVHDS2 ---
Discharge Summary Date of Admission Apr 23, 2025 at 09:09 Date of Discharge: Apr 25, 2025 Labs/Diagnostic Data: Laboratory Results Test 04/25/25 11:17 04/24/25 07:35 04/23/25 09:07 04/23/25 08:32 POC Glucose 84 mg/dl (70-106) White Blood Count 8.1 10^3/uL (4.4-10.8) Red Blood Count 3.87 10^6/uL (4.0-5.20) Hemoglobin 12.5 g/dL (12.2-16.2) Hematocrit 37.3 % (36.0-46.0) Mean Corpuscular Volume 96.5 fL (80.0-100.0) Mean Corpuscular Hemoglobin 32.4 pg (28.0-32.0) Mean Corpuscular Hemoglobin Concent 33.6 g/dL (32.0-36.0) Red Cell Distribution Width 14.4 % (11.8-14.3) Platelet Count 340 10^3/uL (140-450) Mean Platelet Volume 7.1 fL (6.9-10.8) Neutrophils (%) (Auto) 55.1 % (37.0-80.0) Lymphocytes (%) (Auto) 38.1 % (10.0-50.0) Monocytes (%) (Auto) 6.1 % (0.0-12.0) Eosinophils (%) (Auto) 0.2 % (0.0-7.0) Basophils (%) (Auto) 0.5 % (0.0-2.0) Neutrophils # (Auto) 4.5 10 ^3/uL (1.6-8.6) Lymphocytes # (Auto) 3.1 10 ^3/uL (0.4-5.4) Monocytes # (Auto) 0.5 10 ^3/uL (0-1.3) Eosinophils # (Auto) 0 10 ^3/uL (0-0.8) Basophils # (Auto) 0 10 ^3/uL (0-0.2) Nucleated Red Blood Cells 0.0 % Sodium Level 143 mmol/L (136-145) Potassium Level 3.7 mmol/L (3.5-5.1) Chloride Level 109 mmol/L (98-107) Carbon Dioxide Level 24 mmol/L (20-31) Anion Gap 10 (5-15) Blood Urea Nitrogen 7 mg/dL (9-23) Creatinine 0.70 mg/dL (0.550-1.02) Glomerular Filtration Rate Calc 99 mL/min (>90) BUN/Creatinine Ratio 10.0 (10.0-20.0) Serum Glucose 82 mg/dL (74-106) Calcium Level 8.9 mg/dL (8.7-10.4) Urine Color Yellow (Yellow) Urine Clarity Turbid (Clear) Urine pH 8.0 (5.0-9.0) Urine Specific [place] 1.022 (1.001-1.035) Urine Protein Trace (Negative) Urine Ketones 1+ (Negative) Urine Blood Negative /uL (Negative) Urine Nitrite Negative (Negative) Urine Bilirubin Negative (Negative) Urine Urobilinogen Normal mg/dL (Negative) Urine Leukocyte Esterase Negative /uL (Negative) Urine RBC 9 /hpf (0 - 4) Urine Microscopic WBC 4 /HPF (0-5) Urine Squamous Epithelial Cells Few /hpf (<5) Urine Amorphous Crystals Few /hpf (None Seen) Urine Bacteria None seen /hpf (None Seen) Urine Mucus Few (None Seen) Urine Glucose Normal mg/dL (Normal) Lactic Acid Level 1.5 mmol/L (0.4-2.0) Test 04/23/25 04:00 Hemoglobin A1c 5.6 % A1C (<5.7) Total Bilirubin 0.5 mg/dL (0.2-1.0) Aspartate Amino Transferase (AST) 50 U/L (13-40) Alanine Aminotransferase (ALT) 47 U/L (7-40) Alkaline Phosphatase 99 U/L (46-116) Total Protein 7.7 g/dL (5.7-8.2) Albumin 4.7 g/dL (3.2-4.8) Lipase 34 U/L (12-53) Other Laboratory Tests 04/24/25 07:35 Brief Hx & Hospital Course: 59-year-old female with a known history of diabetes mellitus type 2, hypertension initially presented to the hospital with the abdominal pain in the epigastric region associated with the nausea and vomiting found to have diffuse colitis. Patient also has sepsis secondary to colitis. Patient was given IV antibiotics which will be switched to p.o. antibiotics. Patient needs to follow up with the outpatient GI for colonoscopy once colitis has been resolved likely with a in 4-6 weeks. Patient will be given p.o. antibiotics. Condition at Discharge: Stable Final Diagnosis/Problems List 59-year-old female with a known history of diabetes mellitus type 2, hypertension initially presented to the hospital with the abdominal pain in the epigastric region associated with the nausea and vomiting found to have 1. Colitis 2. Sepsis secondary to colitis 3. Leukocytosis likely reactive 4. Diabetes mellitus type 2 5. Hypertension Discharge Disposition: Home SNF Discharge Will this Physician continue t: No Discharge Instruct/Medications Diet: Cardiac 2g Na,low cholest Diet comment: 1999 ADA diet Activity: See Comment Activity comment: No driving, no signing legal documents, no playing on machinery while on narcotics. Follow Up/Referral: Follow up with the PCP in 1-2 weeks Follow up with the GI doctor Vanessa Guerrero in four weeks for colonoscopy, once colitis resolves. Medications: Levaquin and Flagyl as prescribed. New Medications: Levofloxacin Hemihydrate (Levaquin 500 Mg) 500 Mg Tab 1 TAB PO DAILY, #10 TAB Metronidazole (Flagyl) 500 Mg Tab 1 TAB PO TID, #30 TAB Scheduled Amlodipine Besylate (Amlodipine Besylate), 2.5 MG PO DAILY, (Reported) Aspirin (Aspirin Low Dose), 81 MG PO DAILY Levofloxacin Hemihydrate (Levaquin 500 Mg), 1 TAB PO DAILY Lisinopril (Lisinopril), 20 MG PO QAM, (Reported) Metronidazole (Flagyl), 1 TAB PO TID Prednisone (Prednisone), 40 MG PO DAILY Scheduled PRN Cyclobenzaprine HCl (Cyclobenzaprine Hydrochlo), 10 MG PO Q8HPRN PRN Epinephrine (Anaphylaxis) (Auvi-Q), 0.1 MG IJ O PRN Hydrocodone-Acetaminophen (Hydrocodone/Acetaminophen 10-325 mg), 1 TAB PO Q6HPRN PRN for PAIN1-6, (Reported) Tramadol Hcl (Tramadol Hcl), 1 TAB PO Q8HPRN PRN for PAIN SCALE 1 THRU 6, (Reported) Discharge Statement: "Patient was advised to return to the ER or call 911 if any headaches, dizziness, shortness of breath, chest pain, abdominal pain, bleeding, fevers, or worsening of medical condition. Patient was counseled about treatment plan, medications, possible side effects, patientverbalized understanding. All questions were answered to the best of my ability. This discharge took greater then 30 minutes in planning, reviewing documentation, counseling the patient, and discussing with other team members." ASSESSMENT ASSESSMENT Assessment 59-year-old female with a known history of diabetes mellitus type 2, hypertension initially presented to the hospital with the abdominal pain in the epigastric region associated with the nausea and vomiting found to have 1. Colitis 2. Sepsis secondary to colitis 3. Leukocytosis likely reactive 4. Diabetes mellitus type 2 5. Hypertension Date of Service: Apr 25, 2025 Billing Provider: HARRISON HANSON MD Common Visit Codes: 40797-MOV/OBS DISCH DAY >30min HARRISON HANSON MD Apr 25, 2025 15:31
== END 2025-04-25 20:28 | disposition home or self-care (01) | DRG 720 ==
LOC: ER 03:09 → OVERFLOW 09:09 → WEST WING 16:40
PROVIDERS: ADMIT Internal Medicine; ATTEND Internal Medicine
DX: A41.9 Sepsis, unspecified organism (principal); R16.0 Hepatomegaly, not elsewhere classified; A04.9 Bacterial intestinal infection, unspecified; E11.9 Type 2 diabetes mellitus without complications; I10 Essential (primary) hypertension; E66.9 Obesity, unspecified; Z88.6 Allergy status to analgesic agent; Z88.0 Allergy status to penicillin; Z91.013 Allergy to seafood; Z90.710 Acquired absence of both cervix and uterus; Z87.891 Personal history of nicotine dependence; Z68.31 Body mass index [BMI] 31.0-31.9, adult
CPT/HCPCS: 36415; 74018; 74176; 76705; 80048; 80053; 81001; 82962; 83036; 83605; 83690; 85025; 87040; 96374; 99291; 99292; G0378; J1956; J2405; J2470; J3490